=== PATIENT | female | born 1935 | race Caucasian/White ===

== ENCOUNTER 2016-06-24 13:56 | Emergency (ER) | payer MEDICARE, BC ==
[~2016-06-24 13:56] MED LIST: ASPIRINEC PO; CALCIUM 500 + D1 TAB PO; CIPRO PO; CO Q 10; GLUCOPHAGE XR500 MG PO; LIPITOR PO; LOPRESSOR PO; NITROGYLCERIN SUBLINGUAL; NORVASC PO; OMEGA 3; PLAVIX PO; PYRIDIUM PO; SYNTHROID PO; ZESTORETIC 20/11 TAB PO
== END 2016-06-24 14:55 | disposition home or self-care (01) ==
LOC: CED 13:56
DX: S60.811A Abrasion of right wrist, initial encounter (principal); Z23 Encounter for immunization; D64.9 Anemia, unspecified; W55.03XA Scratched by cat, initial encounter
CPT/HCPCS: 90471; 90715; 99283